=== PATIENT | male | born 1935 | race Two or more races ===

== ENCOUNTER 2018-10-12 07:55 | Emergency (ER) | payer OTHER ==
[~2018-10-12] VITALS: Ht 167.6 cm; Wt 61.2 kg
[~2018-10-12 07:55] MED LIST: FORADIL12 MCG IH; LISINOPRIL5 MG PO; NORVASC2.5 MG PO; PULMICORT180 MCG/AE IH; SINGULAIR10 MG PO; VERAPAMIL HCL180 MG PO
[2018-10-12] MEDS ORDERED: SYMBICORT 16010.2 GM IH (08:08)
[2018-10-12] MEDS ORDERED: SIMVASTATIN20 MG PO (08:09)
== END 2018-10-12 13:01 | disposition home or self-care (01) ==
LOC: ER 07:55
DX: I16.0 Hypertensive urgency (principal); I10 Essential (primary) hypertension; R11.0 Nausea